=== PATIENT | female | born 1990 | race Caucasian/White ===

== ENCOUNTER 2019-11-02 19:10 | Inpatient (IN) | payer SELFPAY ==
[~2019-11-02] VITALS: Ht 160 cm; Wt 72.7 kg
[2019-11-02 19:47] LABS: BASOPHILS 0.2 % (0-2); EOSINOPHILS 3.1 % (0-7); HEMATOCRIT 35.3 % (36.0-48.0); HEMOGLOBIN 11.1 g/dL (12-16); IMMATURE GRANULOCYTES 0.2 % (0-5); LYMPHOCYTES 20.1 % (15-50); MCH 23.6 pg (26.0-34.0); MCHC 31.4 g/dL (31.0-37.0); MCV 74.9 fL (80.0-100.0); MEAN PLATELET VOLUME 8.9 fL (7.4-10.4); MONOCYTES 6.7 % (2-11); NEUTROPHILS 69.7 % (40-80); PLATELET COUNT 398 10x3/uL (130-400); RBC 4.71 10x6/uL (4.00-5.40); RDW 16.6 % (11.5-14.5); WBC 9.7 10x3/uL (4.8-10.8)
[2019-11-02 19:53] LABS: APPEARANCE CLEAR (CLEAR); BILIRUBIN NEGATIVE (NEGATIVE); COLOR STRAW (YELLOW); GLUCOSE NEGATIVE (NEGATIVE); KETONE NEGATIVE (NEGATIVE); NITRITE NEGATIVE (NEGATIVE); PROTEIN NEGATIVE (NEGATIVE); UROBILINOGEN NORMAL (NORMAL)
[2019-11-02 19:54] LABS: HCG URINE NEGATIVE (NEGATIVE)
[2019-11-02 20:01] LABS: CALC OSMOLALITY 282 mosm/kg (275-300); CALCIUM 9.1 mg/dL (8.5-10.1); CARBON DIOXIDE 24.6 mmol/L (21.0-32.0); CHLORIDE - SERUM 105 mmol/L (98-107); CREATININE - SERUM 0.7 mg/dL (0.6-1.3); GLUCOSE 109 mg/dL (74-106); SODIUM 142 mmol/L (136-145); UREA NITROGEN 9 mg/dL (7-18); eGFR NON AFRICAN AMERICAN > 90 mL/min (90-120)
[2019-11-02 20:10] LABS: ALBUMIN 3.8 g/dL (3.4-5.0); ALKALINE PHOSPHATASE 122 U/L (46-116); ALT (SGPT) 33 U/L (10-68); BILIRUBIN - TOTAL 0.13 mg/dL (0.2-1.3); PROTEIN - SERUM 7.8 g/dL (6.4-8.2); TROPONIN-I < 0.017 ng/mL (0.000-0.060)
[2019-11-02 20:17] LABS: LIPASE 4123 U/L (73-393)
[2019-11-02 23:08] VITALS: BP 114/78
[2019-11-03] VITALS: BP 113/80
[2019-11-03 04:21] VITALS: BP 79/59
[2019-11-03 05:18] LABS: BASOPHILS 0.2 % (0-2); EOSINOPHILS 4.4 % (0-7); HEMATOCRIT 31.1 % (36.0-48.0); HEMOGLOBIN 9.5 g/dL (12-16); IMMATURE GRANULOCYTES 0.1 % (0-5); LYMPHOCYTES 33.9 % (15-50); MCH 23.1 pg (26.0-34.0); MCHC 30.5 g/dL (31.0-37.0); MCV 75.7 fL (80.0-100.0); MEAN PLATELET VOLUME 9.4 fL (7.4-10.4); MONOCYTES 8.2 % (2-11); NEUTROPHILS 53.2 % (40-80); PLATELET COUNT 336 10x3/uL (130-400); RBC 4.11 10x6/uL (4.00-5.40); RDW 16.7 % (11.5-14.5); WBC 8.2 10x3/uL (4.8-10.8)
[2019-11-03 05:43] LABS: ALKALINE PHOSPHATASE 87 U/L (46-116); CALC OSMOLALITY 278 mosm/kg (275-300); CALCIUM 7.8 mg/dL (8.5-10.1); CARBON DIOXIDE 21.2 mmol/L (21.0-32.0); CHLORIDE - SERUM 111 mmol/L (98-107); CREATININE - SERUM 0.6 mg/dL (0.6-1.3); GLUCOSE 92 mg/dL (74-106); POTASSIUM - SERUM 3.5 mmol/L (3.5-5.1); SODIUM 141 mmol/L (136-145); UREA NITROGEN 7 mg/dL (7-18); eGFR NON AFRICAN AMERICAN > 90 mL/min (90-120)
[2019-11-03 05:48] LABS: ALBUMIN 2.5 g/dL (3.4-5.0); ALT (SGPT) 22 U/L (10-68)
[2019-11-03 06:17] LABS: LIPASE 2778 U/L (73-393)
--- NOTE | 2019-11-03 07:48 | NUR ---
ASSESSMENT DONE. DENIES NEEDS
[2019-11-03 09:42] VITALS: BP 109/74
[2019-11-03 13:55] VITALS: Ht 160 cm; Wt 72.7 kg
[2019-11-03 16:10] LABS: CHOL - HDL RATIO 3.2 ratio (2.3-4.1)
[2019-11-03 16:30] VITALS: BP 111/72
--- NOTE | 2019-11-03 16:51 | NUR ---
I have reviewed this patient and I concur with the Shift Assessment completed by the Licensed Practical Nurse today this shift.
--- NOTE | 2019-11-03 17:47 | NUR ---
WITHOUT CHANGES OR DISTRESS NOTED AT THIS TIME.
--- NOTE | 2019-11-03 19:10 | NUR ---
BEDSIDE REPORT RECEIVED FROM DAY SHIFT, PT CARE ASSUMED. INTRODUCED SELF AND WROTE NAME ON BOARD. PT LYING IN BED, WATCHING TV, AAOX4. C/O UPPER ABDOMINAL PAIN OF 9, ON A SCALE OF 0-10, THAT RADIATES TO HER BACK. REQUESTING JELL-O, PROVIDED. DENIES ANY OTHER NEEDS AT THIS TIME. BED IN LOWEST POSITION, SR X2, CALL LIGHT WITHIN REACH. WILL CONTINUE TO MONITOR.
[2019-11-03 20:00] VITALS: BP 103/74
[2019-11-03 23:41] VITALS: BP 103/71
[2019-11-04 04:00] VITALS: BP 110/70
[2019-11-04 05:22] LABS: BASOPHILS 0.3 % (0-2); EOSINOPHILS 4.2 % (0-7); HEMOGLOBIN 9.1 g/dL (12-16); IMMATURE GRANULOCYTES 0.1 % (0-5); LYMPHOCYTES 30.7 % (15-50); MCH 22.8 pg (26.0-34.0); MCHC 30.3 g/dL (31.0-37.0); MCV 75.2 fL (80.0-100.0); MEAN PLATELET VOLUME 8.8 fL (7.4-10.4); MONOCYTES 7.6 % (2-11); NEUTROPHILS 57.1 % (40-80); PLATELET COUNT 322 10x3/uL (130-400); RBC 3.99 10x6/uL (4.00-5.40); RDW 16.3 % (11.5-14.5); WBC 7.6 10x3/uL (4.8-10.8)
[2019-11-04 05:49] LABS: CALC OSMOLALITY 281 mosm/kg (275-300); CALCIUM 8.2 mg/dL (8.5-10.1); CARBON DIOXIDE 24.5 mmol/L (21.0-32.0); CHLORIDE - SERUM 109 mmol/L (98-107); CREATININE - SERUM 0.6 mg/dL (0.6-1.3); GLUCOSE 94 mg/dL (74-106); MAGNESIUM - SERUM 1.7 mg/dL (1.8-2.4); POTASSIUM - SERUM 3.5 mmol/L (3.5-5.1); SODIUM 143 mmol/L (136-145); eGFR NON AFRICAN AMERICAN > 90 mL/min (90-120)
[2019-11-04 06:04] LABS: LIPASE 2278 U/L (73-393); UREA NITROGEN 3 mg/dL (7-18)
--- NOTE | 2019-11-04 07:25 | NUR ---
ASSESSMENT DONE. DENIES NEEDS
[2019-11-04 08:00] VITALS: BP 100/63
[2019-11-04 12:13] LABS: % SATURATION 9 % (15-55); IRON 29 ug/dl (35-150); TOTAL IRON BIND CAPACITY 305 ug/dl (260-445); UNSAT IRON BIND CAPACITY 276 ug/dl (150-375)
[2019-11-04 12:43] VITALS: BP 110/76
--- NOTE | 2019-11-04 15:09 | NUR ---
I have reviewed this patient and I concur with the Shift Assessment completed by the Licensed Practical Nurse today this shift.
[2019-11-04 16:13] VITALS: BP 92/56
--- NOTE | 2019-11-04 19:10 | NUR ---
BEDSIDE REPORT RECEIVED FROM DAY SHIFT, PT CARE ASSUMED. WROTE NAME ON BOARD. PT LYING IN BED, WATCHING TV, AAOX4. DENIES PAIN OR ANY NEEDS AT THIS TIME. BED IN LOWEST POSITION, SR X2, CALL LIGHT WITHIN REACH. WILL CONTINUE TO MONITOR.
[2019-11-04 20:00] VITALS: BP 108/58
[2019-11-05] VITALS: BP 111/62
[2019-11-05 04:00] VITALS: BP 100/62
[2019-11-05 05:10] LABS: BASOPHILS 0.4 % (0-2); EOSINOPHILS 4.3 % (0-7); HEMATOCRIT 31.3 % (36.0-48.0); HEMOGLOBIN 9.7 g/dL (12-16); IMMATURE GRANULOCYTES 0.1 % (0-5); LYMPHOCYTES 32.3 % (15-50); MCH 23.3 pg (26.0-34.0); MCV 75.1 fL (80.0-100.0); MEAN PLATELET VOLUME 9.2 fL (7.4-10.4); MONOCYTES 9.5 % (2-11); NEUTROPHILS 53.4 % (40-80); PLATELET COUNT 363 10x3/uL (130-400); RBC 4.17 10x6/uL (4.00-5.40); RDW 16.3 % (11.5-14.5); WBC 7.4 10x3/uL (4.8-10.8)
[2019-11-05 05:34] LABS: CALC OSMOLALITY 281 mosm/kg (275-300); CALCIUM 8.6 mg/dL (8.5-10.1); CARBON DIOXIDE 23.9 mmol/L (21.0-32.0); CHLORIDE - SERUM 110 mmol/L (98-107); CREATININE - SERUM 0.6 mg/dL (0.6-1.3); GLUCOSE 97 mg/dL (74-106); POTASSIUM - SERUM 3.4 mmol/L (3.5-5.1); SODIUM 143 mmol/L (136-145); UREA NITROGEN 3 mg/dL (7-18); eGFR NON AFRICAN AMERICAN > 90 mL/min (90-120)
[2019-11-05 05:40] LABS: LIPASE 1474 U/L (73-393)
--- NOTE | 2019-11-05 07:00 | NUR ---
RECEIVED REPORT. ASSUMED CARE OF PATIENT. CALL LIGHT WITHIN REACH. RESTING WITH EYES CLOSED. IV FLUIDS INFUSING ORDERED. NO DISTRESS.
[2019-11-05 07:56] VITALS: BP 113/72
--- NOTE | 2019-11-05 09:27 | NUR ---
RESTING WELL. WANTS TO GO HOME. NO DISTRESS. IV FLUIDS INFUSING ORDERED.
[2019-11-05 11:19] VITALS: BP 119/74
--- NOTE | 2019-11-05 12:45 | NUR ---
20 GAUGE IV REMOVED FROM LEFT AC PATIENT IS COMPLAINING OF PAIN. NO S/S INFILTRATION OBSERVED BUT PATIENT IN LARGE AMOUNT OF DISCOMFORT FROM 1V. CATHETER TIP INTACT. NO BLEEDING FROM SITE. 2X2 GAUZE APPLIED AND SECURED WITH BANDAID. PATIENT DOES NOT WANT ANOTHER IV PLACED AT THIS TIME. PATIENT WANTS TO SEE IF MD WILL RELEASE HER TO HOME. NO DISTRESS. ICE WATER AND APPLE JUICE PROVIDED.
--- NOTE | 2019-11-05 15:19 | NUR ---
PATIENT SITTING IN BED CONSUMING SANDWHICH AND FRUIT AND DRINKING DARK COLA. PATIENT IS TOLERATING SOLID FOOD WELL.
--- NOTE | 2019-11-05 15:30 | NUR ---
DISCHARGE INSTRUCTIONS PROVIDED TO PATIENT AT THIS TIME. PATIENT VERBALIZED UNDERSTANDING OF ALL INSTRUCTIONS PROVIDED.
--- NOTE | 2019-11-05 15:45 | NUR ---
PATIENT LEFT UNIT VIA WHEELCHAIR AT THIS TIME WITH ALL PERSONAL BELONGINGS. PATIENT DISCHARGED TO HOME IN NO DISTRESS. PATIENT DISCHARGE TO HOME WITH HER SPOUSE IN STABLE CONDITION. PATIENT CONSUMED SANDWICH AND FRUIT PRIOR TO LEAVING AND TOLERATED SOLID FOODS WELL.
== END 2019-11-05 15:45 | disposition home or self-care (01) | DRG 391 ==
LOC: D.ER 19:10 → D.M2 20:52
PROVIDERS: Family Medicine; ADMIT Family Medicine; ATTEND Family Medicine
DX: K29.80 Duodenitis without bleeding (principal); K85.90 Acute pancreatitis without necrosis or infection, unspecified; D50.9 Iron deficiency anemia, unspecified